=== PATIENT | male | born 1965 ===

== ENCOUNTER 2020-10-26 21:02 | Inpatient (IN) ==
[2020-10-26] MEDS ORDERED: Heparin - STEMI 5,000 UNITS/ML 1 ml VIAL IV ONE (21:04)
[2020-10-26 21:19] LABS: ABS Basophils 0.1 10^3/ul (0-0.2); ABS Eosinophils 0.1 10^3/ul (0-0.6); ABS Lymphocytes 4.9 10^3/ul (1.0-4.8); ABS Monocytes 0.8 10^3/ul (0-0.8); ABS Neutrophils 4.2 10^3/ul (1.5-7.7); Eosinophil % 0.7 %; Hematocrit 41 % (42-52); Hemoglobin 13.3 g/dL (14.0-18.0); Lymphocyte % 48.3 %; Mean Corpuscular HGB Conc 33 g/dL (31-36); Mean Corpuscular Hemoglobin 27 pg (27-31); Mean Corpuscular Volume 84 fL (80-94); Mean Platelet Volume 7.9 fL (7.4-10.4); Platelet Count 266 10^3/uL (150-450); Red Blood Count 4.84 10^6 /uL (4.18-5.48); Red Cell Distribution Width 13 % (10-15); White Blood Count 10.1 10^3/uL (3.5-10.8)
[2020-10-26] MEDS ORDERED: Midazolam 5 mg/5 ml VIAL 1 mg/ml 5 ml VIAL (5 mg) ONE (21:21)
[2020-10-26] MEDS ORDERED: fentaNYL 100 mcg/2 ml 50 MCG/ML VIAL ONE (21:21)
[2020-10-26] MEDS ORDERED: VERAPAMIL 2.5 MG/ML 2 ML VIAL ** 5 mg/2 ml ONE (21:21)
[2020-10-26] MEDS ORDERED: Iohexol 350 (CONTRAST) 200 ML MDV IV ONE ×2 (21:22→22:16)
[2020-10-26] MEDS ORDERED: Heparin 2 UNITS/ML 1000 mls 2,000 ML IV ONE (21:22)
[2020-10-26] MEDS ORDERED: Lidocaine 1% VIAL 10 MG/ML VIAL ONE (21:22)
[2020-10-26] MEDS ORDERED: niCARdipine 0.1MG/ML IVPREMIX 20 MG/200 ML BAG IV ONE (21:22)
[2020-10-26] MEDS ORDERED: Heparin 1,000 UNIT/ML 10 ml (10,000 UNITS) CATHLAB/DIALYSIS ONE (21:22)
[2020-10-26] MEDS ORDERED: nitroGLYCERIN DRIP 25,000 MCG/250 ML BTL ONE (21:22)
[2020-10-26 21:29] LABS: Activated Partial Thrombo Time 28.2 seconds (26.0-38.0); INR 0.99 (0.86-1.15)
[2020-10-26 21:36] LABS: ALT 11 U/L (7-52); AST 11 U/L (13-39); Albumin 4.4 g/dL (3.2-5.2); Albumin/Globulin Ratio 1.5 (1-3); Alkaline Phosphatase 51 U/L (35-149); Anion Gap 9 mmol/L (2-11); Blood Urea Nitrogen 12 mg/dL (6-24); CO2 Carbon Dioxide 24 mmol/L (22-32); Calcium 9.3 mg/dL (8.6-10.3); Chloride 105 mmol/L (101-111); EGFR African American 107.4 (>60); EGFR Non-African American 88.7 (>60); Globulin 2.9 g/dL (2-4); Glucose 143 mg/dL (70-100); Potassium 3.1 mmol/L (3.5-5.0); Sodium 138 mmol/L (135-145); Total Protein 7.3 g/dL (6.4-8.9)
[2020-10-26 21:43] LABS: Troponin I 0.05 ng/mL (<0.03)
[2020-10-26] MEDS ORDERED: Ondansetron 4 mg VIAL 2 MG/ML 2 ml VIAL ONE (21:51)
[2020-10-26] MEDS ORDERED: Norepinephrine 16MCG/ML IVPRE 4,000 MCG/250 ML BAG IV ONE (21:52)
[2020-10-26] MEDS ORDERED: Eptifibatide IV (Load dose) 2 MG/ML 10 ml VIAL ONE (22:00)
[2020-10-26] MEDS ORDERED: Atropine 0.1 MG/ML 10 ml SYR (1 mg) ONE (22:38)
[2020-10-26] MEDS ORDERED: Ondansetron 4 mg VIAL 2 MG/ML 2 ml VIAL IV PRN (22:45)
[2020-10-27 00:08] LABS: CKMB ng/mL 168.1 ng/mL (0.6-6.3)
[2020-10-27 00:10] LABS: Troponin I 48.22 ng/mL (<0.03)
[2020-10-27 00:11] LABS: Rapid COVID-19 Molecular Undetected (Undetected)
[2020-10-27 00:25] LABS: Creatine Kinase 2362 U/L (10-223)
[2020-10-27 05:15] LABS: ABS Lymphocytes 1.8 10^3/ul (1.0-4.8); ABS Monocytes 0.8 10^3/ul (0-0.8); ABS Neutrophils 8.3 10^3/ul (1.5-7.7); Hematocrit 37 % (42-52); Hemoglobin 12.1 g/dL (14.0-18.0); Lymphocyte % 16.7 %; Mean Corpuscular HGB Conc 33 g/dL (31-36); Mean Corpuscular Hemoglobin 27 pg (27-31); Mean Corpuscular Volume 84 fL (80-94); Mean Platelet Volume 7.9 fL (7.4-10.4); Platelet Count 215 10^3/uL (150-450); Red Blood Count 4.41 10^6 /uL (4.18-5.48); Red Cell Distribution Width 13 % (10-15)
[2020-10-27 05:36] LABS: Albumin 3.8 g/dL (3.2-5.2); Albumin/Globulin Ratio 1.4 (1-3); Calcium 8.7 mg/dL (8.6-10.3); EGFR African American 141.7 (>60); EGFR Non-African American 117.1 (>60); Globulin 2.7 g/dL (2-4); HDL Cholesterol 43.3 mg/dL; Potassium 3.8 mmol/L (3.5-5.0); Total Bilirubin 0.4 mg/dL (0.2-1.0); Total Protein 6.5 g/dL (6.4-8.9)
[2020-10-27 06:07] LABS: Magnesium 1.9 mg/dL (1.9-2.7)
[2020-10-27] MEDS ORDERED: Perflutren Lipid Microsphere 3 ML VIAL ONE (08:30)
[2020-10-27] MEDS ORDERED: Flu vaccine *QUAD* 2021-22* 0.5 ML SYRINGE IM ONE (09:00)
[2020-10-27] MEDS ORDERED: Heparin 2 UNITS/ML 1000 mls 2,000 ML IV ONE (13:57)
[2020-10-27] MEDS ORDERED: Midazolam 5 mg/5 ml VIAL 1 mg/ml 5 ml VIAL (5 mg) ONE (13:57)
[2020-10-27] MEDS ORDERED: Heparin 1,000 UNIT/ML 10 ml (10,000 UNITS) CATHLAB/DIALYSIS ONE (13:57)
[2020-10-27] MEDS ORDERED: VERAPAMIL 2.5 MG/ML 2 ML VIAL ** 5 mg/2 ml ONE (13:57)
[2020-10-27] MEDS ORDERED: fentaNYL 100 mcg/2 ml 50 MCG/ML VIAL ONE (13:57)
[2020-10-27] MEDS ORDERED: Iohexol 350 (CONTRAST) 200 ML MDV IV ONE (13:58)
[2020-10-27] MEDS ORDERED: niCARdipine 0.1MG/ML IVPREMIX 20 MG/200 ML BAG IV ONE (13:58)
[2020-10-27] MEDS ORDERED: Lidocaine 1% VIAL 10 MG/ML VIAL ONE (13:58)
[2020-10-27] MEDS ORDERED: nitroGLYCERIN DRIP 25,000 MCG/250 ML BTL ONE (13:58)
[2020-10-27] MEDS ORDERED: Ondansetron 4 mg VIAL 2 MG/ML 2 ml VIAL ONE (14:33)
[2020-10-28 04:22] LABS: ABS Lymphocytes 1.2 10^3/ul (1.0-4.8); ABS Monocytes 0.8 10^3/ul (0-0.8); ABS Neutrophils 7.9 10^3/ul (1.5-7.7); Eosinophil % 0.2 %; Hematocrit 36 % (42-52); Hemoglobin 12.1 g/dL (14.0-18.0); Lymphocyte % 12.3 %; Mean Corpuscular HGB Conc 34 g/dL (31-36); Mean Corpuscular Hemoglobin 28 pg (27-31); Mean Corpuscular Volume 83 fL (80-94); Mean Platelet Volume 8.1 fL (7.4-10.4); Platelet Count 198 10^3/uL (150-450); Red Blood Count 4.37 10^6 /uL (4.18-5.48); Red Cell Distribution Width 13 % (10-15); White Blood Count 10.1 10^3/uL (3.5-10.8)
[2020-10-28 04:39] LABS: Albumin 3.7 g/dL (3.2-5.2); Albumin/Globulin Ratio 1.4 (1-3); Calcium 8.7 mg/dL (8.6-10.3); EGFR African American 132.9 (>60); EGFR Non-African American 109.8 (>60); Globulin 2.6 g/dL (2-4); Magnesium 1.9 mg/dL (1.9-2.7); Potassium 3.7 mmol/L (3.5-5.0); Total Bilirubin 0.5 mg/dL (0.2-1.0); Total Protein 6.3 g/dL (6.4-8.9)
[2020-10-28] MEDS ORDERED: Potassium Chlor 20 meq TAB.ER PO ONE (05:21)
[2020-10-29 06:51] LABS: ABS Basophils 0.1 10^3/ul (0-0.2); ABS Eosinophils 0.1 10^3/ul (0-0.6); ABS Lymphocytes 1.9 10^3/ul (1.0-4.8); ABS Neutrophils 4.9 10^3/ul (1.5-7.7); Hematocrit 37 % (42-52); Hemoglobin 12.6 g/dL (14.0-18.0); Lymphocyte % 24.1 %; Mean Corpuscular HGB Conc 34 g/dL (31-36); Mean Corpuscular Hemoglobin 28 pg (27-31); Mean Corpuscular Volume 82 fL (80-94); Mean Platelet Volume 8.5 fL (7.4-10.4); Platelet Count 195 10^3/uL (150-450); Red Blood Count 4.47 10^6 /uL (4.18-5.48); Red Cell Distribution Width 13 % (10-15)
[2020-10-29 07:04] LABS: Calcium 8.7 mg/dL (8.6-10.3); EGFR Non-African American 97.5 (>60); Potassium 3.8 mmol/L (3.5-5.0)
[2020-10-29 07:45] LABS: Phosphorus 2.5 mg/dL (2.5-5.0)
[2020-10-29 12:27] VITALS: BP 100/68
== END 2020-10-29 14:16 | disposition home or self-care (01) | DRG 174 ==
LOC: ED 21:02 → ICU 21:13
PROVIDERS: ADMIT Internal Medicine; ATTEND Internal Medicine